=== PATIENT | male | born 1970 | race African-American/Black ===

== ENCOUNTER 2023-06-03 14:28 | Emergency (ER) | payer OTHER, SELFPAY ==
--- NOTE | ~2023-06-03 | XR_ITS ---
EXAMINATION: XR wrist RT min 3V DATE: 06/03/2023 16:09 INDICATION: Right wrist drop. TECHNIQUE: 3 views of right wrist were obtained. COMPARISON: None. FINDINGS: Bone alignment is normal. No fracture. There is mild osteoarthritis of distal radioulnar silva int. IMPRESSION: 1. Mild osteoarthritis of distal radioulnar joint. Reviewed, dictated and finalized at location E.
--- NOTE | ~2023-06-03 | CT_ITS ---
EXAMINATION: CT brain wo con DATE: 06/03/2023 14:57 INDICATION: Right arm numbness and weakness. TECHNIQUE: Computed tomography (CT) of the head was performed without intravenous contrast. The mA wa s adjusted according to patient size. Iterative reconstruction technique was employed. The dose-lengt h product was 605.33 mGy-cm. COMPARISON: None FINDINGS: There is an old infarct in the right cerebellum. There is an old infarct in left occipital lobe. There is an old infarct in right occipital lobe. There are scattered areas of low attenuation i n the cerebral white matter. There is no intracranial hemorrhage, acute infarction, or abnormal intra cranial mass lesion. The ventricles are normal in size. There is mild mucosal thickening in the paran shaniqua sinuses. The mastoid air cells are normal. IMPRESSION: 1. 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 2. Moderate nonspecific cerebral white matter disease, which likely represents chronic small vessel i schemic disease. Reviewed, dictated and finalized at location E. IMPRESSION: 1. 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 2. Moderate nonspecific cerebral white matter disease, which likely represents chronic small vessel ischemic disease.
[2023-06-03 14:43] VITALS: PULSE 89; RESP 18; O2SAT 99
[2023-06-03 14:47] VITALS: BP 158/95
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
[2023-06-03] MEDS: KETOROLAC 30 MG/ML VIAL (*BKC) IM (16:45)
[2023-06-03 18:16] VITALS: BP 160/57; PULSE 88; RESP 17; O2SAT 100
== END 2023-06-03 18:19 | disposition home or self-care (01) ==
PROVIDERS: Emergency Provider Preventive Medicine Aerospace Medicine
DX: M54.10 Radiculopathy, site unspecified (principal); F17.200 Nicotine dependence, unspecified, uncomplicated; Z96.621 Presence of right artificial elbow joint
CPT/HCPCS: 29125; 70450; 73110; 96372; 99284; J1885

== ENCOUNTER 2023-07-03 13:31 | Outpatient (CLI) | payer OTHER, SELFPAY ==
--- NOTE | 2023-07-03 14:30 | NEURO_ITS ---
Impression: # Complains of right wrist drop with no Restrictions of the movements at the elbow joint, Subsequent to the local trauma. # Decreased motor unit potentials noted in extensor muscle group of wrist in posterior interosseous nerve distribution muscles without active denervation potentials or fibrillations. # Clinical correlation recommended. Nerve Conduction Studies Anti Sensory Summary Table Stim Site NR Peak (ms) P-T Amp (?V) Site1 Site2 Delta-P (ms) Dist (cm) Chris (m/s) Right Median Anti Sensory (2-3nd Digit) Wrist 3.3 14.4 Wrist 2-3nd Digit 3.3 14.0 42 Wrist 3.4 27.2 Wrist 2-3nd Digit 3.3 14.0 42 Right Radial Anti Sensory (Base 1st Digit) Wrist 3.7 4.6 Wrist Base 1st Digit 3.7 0.0 Right Ulnar Anti Sensory (5th Digit) Wrist 3.1 11.8 Wrist 5th Digit 3.1 14.0 45 Motor Summary Table Stim Site NR Onset (ms) O-P Amp (mV) Site1 Site2 Delta-0 (ms) Dist (cm) Chris (m/s) Right Median Motor (Abd Poll Brev) Wrist 3.0 4.8 Elbow Wrist 6.0 35.0 58 Elbow 9.0 5.5 Right Ulnar Motor (Abd Dig Minimi) Wrist 3.0 3.3 A Elbow Wrist 6.2 35.0 56 A Elbow 9.2 3.2 F Wave Studies NR F-Lat (ms) L-R F-Lat (ms) Right Median (Mrkrs) (Abd Poll Brev) 29.18 Right Ulnar (Mrkrs) (Abd Dig Min) 30.55 EMG Side Muscle Nerve Root Ins Act Fibs Amp Dur Recrt Comment Right 1stDorInt Ulnar C8-T1 Nml Nml Nml Nml Nml Right Ext Indicis Radial (Post Int) C7-8 Nml Nml Nml >12ms +2 Right Ext Digitorum Radial (Post Int) C7-8 Nml Nml Nml >12ms +2 Right BrachioRad Radial C5-6 Nml Nml Nml Nml Nml Right PronatorTeres Median C6-7 Nml Nml Nml Nml Nml Right Abd Poll Brev Median C8-T1 Nml Nml Nml Nml Nml Right ABD Dig Min Ulnar C8-T1 Nml Nml Nml Nml Nml Right Biceps Musculocut C5-6 Nml Nml Nml Nml Nml Right Triceps Radial C6-7-8 Nml Nml Nml Nml Nml Right Deltoid Axillary C5-6 Nml Nml Nml Nml Nml Right Abd Poll Long Radial (Post Int) C7-8 Nml Nml Nml >12ms +1 Right ExtCarUln Radial (Post Int) C7-8 Nml Nml Nml >12ms +1 MTDD
== END 2023-07-03 13:32 | disposition home or self-care (01) ==
LOC: ANHNEURO 13:31
PROVIDERS: Visit Provider Plastic Surgery
DX: G56.30 Lesion of radial nerve, unspecified upper limb (principal)
CPT/HCPCS: 95886; 95909

== ENCOUNTER 2023-08-21 10:45 | Outpatient (RCR) | payer OTHER, SELFPAY ==
--- NOTE | 2023-06-21 14:20 | OTOPEVAL1 ---
Assessment and note entered by TRISTON Brandon/Yina, CHT Evaluation Information Assessment Status Evaluation Diagnosis Lesion of the radial nerve Subjective Information Patient reports being placed in handcuffs ~3 weeks ago, which were tight around his wrist. Since then he has been experiencing pain, numbness, and weakness in the right wrist and hand. He has been wearing a wrist brace for comfort. He reports if the hand or wrist is bumped he experiences severe pain and tingling. No pain at rest. Patient works a manual labor job - cutting grass, trimming trees , etc. He states he is unable to folder tier objects, especially with force, so grasping and using a zero turn clay hoister is very difficult for him. Patient states he is unable to lift objects >1 lb. Reported Pain Level Pain Score Mild Pain: Edwards Godoy Additional Pain Score Comments Patient reports some discomfort if out of the brace for a long period of time. States his wrist droops and it becomes uncomfortable. Reports most of his pain if the wrist or hand gets bumped. Assessment OT Clinical Summary Patient referred to OT with right wrist and hand weakness and dx of lesion of radial nerve. He presents with weakness of the wrist and finger extensors, which is greatly impacting his ability to folder tier and lift objects as well as complete fine motor tasks. He also presents with very limited intrinsic and lumbrical strength of the right hand . Issued HEP to begin ROM of all of the affected joints/muscles. Continued follow up indicated to progress his HEP and for continued functional therapeutic exercise to facilitate optimal strength and function of the right hand/UE. Plan of Care Interventions Therapeutic Exercise,Neuro Re-education, Therapeutic Activities OT Services Indicated Yes Treatment Frequency and 1-2x/week for 8 visits Duration These treatments will address the objective and functional deficits as defined above. The patient will be advanced safely and appropriately in order for the patient to progress towards his/her prior level of function. Additional exercises will be introduced and as well as a comprehensive home exercise program upon discharge, if needed, ?to ensure carryover of functional gains achieved in the clinic. This treatment plan has been reviewed and agreement upon by the patient.
--- NOTE | 2023-06-21 14:21 | OPREHPOC ---
Outpatient Therapy Plan of Care This is a Multidisciplinary Plan of Care that may contain components documented by all disciplines (PT, OT, and ST.) OT Problem 1 OT Problem #1 Knowledge Deficit OT Goal 1 Goal 1. Patient to be independent with instructed materials. Target Visit 8 OT Problem 2 OT Problem #2 Impaired Strength OT Goal 1 Goal 1. Improve gross right wrist extension strength to 4+/5. 2. Improve right board certified behavioral analyst strength to 50 lbs. 3. Improve right finger extension strength to 4/5. 4. Improve lumbrical strength as demonstrated by patient being able to actively make the tabletop position with the right hand with the finger IPs in full extension. Target Visit 8
--- NOTE | 2023-07-19 15:59 | OTOPPROG ---
Assessment and note entered by Tristen Sesay, TRISTON/Yina, CHT Evaluation Information Assessment Status Progress Diagnosis Lesion of the radial nerve Subjective Information Patient reports progress in the right hand, noting no longer experiencing pain and his numbness is intermittent vs. constant. At the start of care he reports if the hand or wrist is bumped he was experiencing severe pain and tingling. This is no longer the case. He reports the wrist is stronger and that the hand continues to have a deficit, particularly in the ulnar 2 digits. He states he sometimes drops items. He is not back to work yet. -(R) wrist ROM returned to normal limits. -(R) wrist gross strength returned to normal limits, 5/5. -(R) ring and small fingers demonstrate 20-30 deg. extension lag at the PIP joint, this improved from 50 degrees. -Extensor digitorum: index 4+/5 (improved from 3+/5) middle 4/5 (improved from 3/5) ring 3/5 (improved from 2-/5) small 3/5 (improved from 2-/5) -Finger abduction/adduction (no change since SOC): index 3/5 middle, ring, and small fingers have no active muscle twitch, 0/5 -Lumbricals (no change since SOC): index 3/5 middle 2-/5 ring and small 0/5 -(R) supervisory clerk strength improved from 14 to 26 lbs. Assessment OT Clinical Summary Patient referred to OT with right wrist and hand weakness and dx of lesion of radial nerve. The wrist has returned to normal strength. Deficits include distal strength in the fingers, particularly the ulnar 2 digits. He continues to demonstrate very limited strength in the intrinsics and lumbricals of the ring and small fingers, which continues to impact his ability to supervisory clerk objects as well as complete fine motor tasks. Continued follow up indicated to progress HEP and for continued functional therapeutic exercise to facilitate optimal strength and function of the right hand/UE. Plan of Care Interventions Therapeutic Exercise,Neuro Re-education, Therapeutic Ac
--- NOTE | 2023-07-19 16:00 | OPREHPOC ---
Outpatient Therapy Plan of Care This is a Multidisciplinary Plan of Care that may contain components documented by all disciplines (PT, OT, and ST.) OT Problem 1 OT Problem #1 Knowledge Deficit OT Goal 1 Goal 1. Patient to be independent with instructed materials. ---OT POC UPDATE 07/19/23--- 1. Met, continue as HEP is progressed Target Visit 9 OT Problem 2 OT Problem #2 Impaired Strength OT Goal 1 Goal 1. Improve gross right wrist extension strength to 4+/5. 2. Improve right engineering tech strength to 50 lbs. 3. Improve right finger extension strength to 4/5. 4. Improve lumbrical strength as demonstrated by patient being able to actively make the tabletop position with the right hand with the finger IPs in full extension. ---OT POC UPDATE 07/19/23--- 1. Met 2. Progressing, continue 3. Progressing, continue 4. Not met, continue Target Visit 9
--- NOTE | 2023-07-26 10:32 | PCOTNOTE ---
Patient did not show up for scheduled appointment this date. Patient was contacted and a message was left to reschedule if able. Phone number was provided.
--- NOTE | 2023-08-09 11:30 | PCOTNOTE ---
Patient did not show up for scheduled appointment this date. Patient was called and message was left for reschedule if able. Also, reminded of upcoming appointment on the .
--- NOTE | 2023-08-15 10:26 | PCOTNOTE ---
Patient did not show up for scheduled appointment this date. Patient was called and message was left for reschedule if able. Also, reminded of upcoming appointment on the for his Re-evaluation.
--- NOTE | 2023-08-17 08:35 | PCOTNOTE ---
Patient did not show up for scheduled appointment this date. Patient was scheduled for Sunday and called at end of day on Sunday to reschedule. Patient was rescheduled for today the at 8:15 am. When called it when straight to voicemail and a message was left with a call back number.
--- NOTE | 2023-08-20 13:41 | PCOTNOTE ---
Patient called to reschedule his appt today due to having a flat tire.
--- NOTE | 2023-08-21 11:36 | OTOPDC ---
Assessment and note entered by Tristen Sesay, KARENR/Yina, CHT OT Discharge Summary 08/21/23 Diagnosis Lesion of the radial nerve Subjective Information Patient reports his hand feels stiff in the morning. Intermittently numb in the morning, the ulnar 2 digits. He reports the hand continues to have a deficit, particularly in the ulnar 2 digits. He states he continues to drop items with the right hand and that this has not really changed. -(R) wrist ROM returned to normal limits. -(R) wrist gross strength returned to normal limits, 5/5. -(R) finger extension at the MCP level is WNL. -(R) ring and small fingers demonstrate 20-30 deg. extension lag at the PIP joint -Extensor digitorum: index 4+/5 (improved from 3+/5) middle 4/5 (improved from 3/5) ring 3/5 (unchanged from last month) small 3/5 (unchanged from last month) -Finger abduction/adduction (no change since start of care): index 3/5 middle, ring, and small fingers have no active muscle twitch, 0/5 -Lumbricals (no change since start of care): index 3/5 middle 2-/5 ring and small 0/5 -(R) planning engineer strength improved from 26 to 51 lbs. Assessment OT Clinical Summary Patient referred to OT with right wrist and hand weakness and dx of lesion of radial nerve. The wrist has returned to normal strength. Deficits include distal strength in the fingers, particularly the ulnar 2 digits. He continues to demonstrate very limited strength in the intrinsics and lumbricals of the ring and small fingers, which continues to impact his ability to planning engineer objects as well as complete fine motor tasks. Unfortunately he has reached a progress plateau with therapy. Reviewed HEP today and discussed the importance of maintaining his flexibility while waiting for the nerve to return. He demonstrates independence with all materials. D/C OT at this time. Patient to follow up with MD in a month. Plan of Care OT Services Indicated No
== END 2023-08-21 14:08 | disposition home or self-care (01) ==
LOC: ANHOT 10:45
PROVIDERS: Visit Provider Plastic Surgery
DX: G56.30 Lesion of radial nerve, unspecified upper limb (principal)
CPT/HCPCS: 97110; 97140; 97165; 97530

== ENCOUNTER 2023-12-01 19:53 | Emergency (ER) | payer OTHER, SELFPAY ==
--- NOTE | ~2023-12-01 | CT_ITS ---
CT of the Abdomen and Pelvis, and lumbar spine: Indication: Hematuria Technique: 2.5 mm axial scans were obtained through the abdomen and pelvis following intravenous adm inistration of 100 cc of Omnipaque 350. Axial imaging of the lumbar spine was also performed, sagitta l and coronal reformats. Dose reduction technique was used on this scan by utilizing automated exposu re control and iterative reconstruction technique. The dose-length product (DLP) was 713.40 mGy-cm. Findings: Scans through the lung bases are unremarkable. Hepatic cysts are present. The spleen, pancreas, gallbladder, adrenals and kidneys are within normal limits. No evidence of aortic aneurysm. No lymphadenopathy. No bowel obstruction or bowel wall thickening. There is no evidence to suggest acute appendicitis. Images through the pelvis were performed. Urinary bladder collapsed around a Carroll catheter. No pelvi c mass seen. No ascites. There is no fracture or subluxation of lumbar spine. Vertebral bodies maintain normal height and alig nment. There are mild degenerative disc changes throughout the lumbar spine, worst at L3-L4. At L1-L2, there is no disc bulge or herniation. No spinal canal stenosis or neural foraminal narrowin g. At L2-L3, there is no disc bulge or herniation. No spinal canal stenosis or neural foraminal narrowin g. At L3-L4, there is minimal disc bulge. No spinal canal stenosis or neural foraminal narrowing. At L4-L5, there is disc bulge and minimal facet arthropathy. No central canal stenosis. Probable mini mal right neural foraminal narrowing. Left neural foramen preserved. At L5-S1, there is no disc bulge or herniation. No spinal canal stenosis or neural foraminal narrowin g. Impression: No significant abnormalities seen. Minimal degenerative change of the lumbar spine. Reviewed, dictated and finalized at [facility]. Impression: No significant abnormalities seen. Minimal degenerative change of the lumbar spine.
[2023-12-01 20:10] VITALS: BP 165/92; PULSE 92; RESP 15; TEMP 36.8; O2SAT 100
[2023-12-01 21:34] LABS: Basophils Percent Auto 0.3 % (0.2-1.2); Eosinophils Absolute Auto 0.3 K/mm3 (0-0.3); Hematocrit 41.4 % (42.0-52.0); Hemoglobin 13.8 g/dL (14.0-18.0); Immature Granulocyte Absolute 0.01 K/mm3 (0.00-0.031); Immature Granulocyte Percent A 0.2 % (0-0.5); Mean Corpuscular HGB Conc 33.3 g/dl (32-36); Mean Corpuscular Hemoglobin 30.9 pg (26-34); Mean Corpuscular Volume 92.6 fl (80-100); Mean Platelet Volume 8.5 fl (7.4-10.4); Monocytes Absolute Auto 0.5 K/mm3 (0.1-0.6); Monocytes Percent Auto 8.3 % (2.6-8.5); Neutrophils Absolute Auto 3.4 K/mm3 (1.3-6.7); Neutrophils Percent Auto 53.2 % (45.5-73.1); Platelet Count Result 198 k/mm3 (150-375); Red Blood Count 4.47 M/mm3 (4.6-6.20); Red Cell Distribution Width 13.7 % (11.5-14.5); White Blood Count 6.4 K/mm3 (4.5-10.0)
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
[2023-12-01 21:45] LABS: Alanine Aminotransferase 16 U/L (6-50); Albumin Level 4.2 g/dL (3.5-5.1); Alkaline Phosphatase 68 U/L (38-126); Anion Gap 5 mmol/L (4-12); Aspartate Amino Transferase 31 U/L (17-59); Bilirubin,Total 0.9 mg/dL (0.2-1.3); Blood Urea Nitrogen 13 mg/dL (9-20); Calcium 9.7 mg/dL (8.4-10.2); Carbon Dioxide 27 mmol/L (22-30); Chloride 104 mmol/L (98-107); Estimated CRCL calculation 83 ml/min; Estimated Glomerular Filt Rate > 60; Glucose 94 mg/dL (65-110); Magnesium 2.2 mg/dL (1.6-2.3); Potassium 4.3 mmol/L (3.4-5.0); Sodium 136 mmol/L (137-145)
[2023-12-01 21:59] LABS: Bacteria Urine None Seen /hpf; Non Pathogenic Casts 0-2; RBC Urine >100 /hpf (0-2); Squamous Epithelial Cell Urine None Seen /hpf (Few)
[2023-12-01 22:00] LABS: Add Urine Microscopic? YES; Appearance Urine Cloudy (Clear); Blood Urine 3+ (Negative); Color Urine Light Red (Yellow); Glucose Urine UA Negative (Negative); Ketones Urine Negative (Negative); Leukocyte Esterase Ur 1+ LEU/UL (Negative); Nitrate Urine Negative (Negative); Protein Urine 1+ mg/dL (Negative); Specific Grav Ur 1.024 (1.001-1.035); pH Urine 5.5 (5.0-9.0)
[2023-12-01 22:39] VITALS: BP 172/102; PULSE 78; RESP 15; O2SAT 100
--- NOTE | 2023-12-01 23:08 | PC.NURSE ---
Report received from SCARLET Teresa. Assumed care of patient at this time.
[2023-12-02 00:52] VITALS: O2SAT 100
[2023-12-02 01:04] VITALS: O2SAT 100
[2023-12-02 01:16] VITALS: BP 155/92; PULSE 77; RESP 20; O2SAT 100
[2023-12-02 02:47] VITALS: BP 147/89; PULSE 87; RESP 17; O2SAT 98
[2023-12-02 03:12] VITALS: BP 147/89; PULSE 85; RESP 17; O2SAT 100
== END 2023-12-02 03:15 | disposition home or self-care (01) ==
PROVIDERS: Emergency Provider Emergency Medicine
DX: N39.3 Stress incontinence (female) (male) (principal); R31.9 Hematuria, unspecified; Z85.46 Personal history of malignant neoplasm of prostate; F17.200 Nicotine dependence, unspecified, uncomplicated; Z96.621 Presence of right artificial elbow joint; Z90.79 Acquired absence of other genital organ(s); Z92.3 Personal history of irradiation; Z92.21 Personal history of antineoplastic chemotherapy
CPT/HCPCS: 36415; 72132; 74177; 80053; 81001; 83735; 85025; 87086; 99284; Q9967